=== PATIENT | male | born 1940 | race Caucasian/White ===

== ENCOUNTER 2022-03-14 12:13 | Emergency (ER) | payer MEDICARE, OTHER ==
[~2022-03-14] VITALS: Ht 175.2 cm; Wt 79.3 kg
--- NOTE | 2022-03-14 12:19 | ED Chest Pain ---
General Stated Complaint: CHEST PAIN History of Present Illness Date Seen by Provider: Mar 14, 2022 Time Seen by Provider: 12:19 Initial Comments 81-year-old male presents with epigastric and mid chest pain. Reports pain started 4 nights ago. That is comes and goes. That it has woke him up from sleep a couple times. He has not had any pain since yesterday evening patient reports he got better with some ibuprofen. Patient has no new cough, shortness of breath, fever, chills, radiation of the pain, nausea, vomiting or hamilton phoresis. Patient went to urgent care who sent him to the ER for further work- up.. Allergies and Home Medications Allergies Coded Allergies: No Known Drug Allergies (Unverified , 03/14/22) Patient Home Medication List Home Medication List Reviewed: Yes Metoprolol Succinate (Metoprolol Succinate) 50 Mg Tab.er.24h, 50 MG PO DAILY Prescribed by: CECI MAYO on 03/14/22 1332 Review of Systems Review of Systems Constitutional: see HPI EENTM: No Symptoms Reported Respiratory: No Symptoms Reported Cardiovascular: See HPI Gastrointestinal: See HPI Genitourinary: No Symptoms Reported Musculoskeletal: no symptoms reported Skin: no symptoms reported Psychiatric/Neurological: No Symptoms Reported Endocrine: No Symptoms Reported Physical Exam Vital Signs Vital Signs - First Documented 03/14/22 12:25 Temp 36.5 Pulse 97 Resp 16 B/P (MAP) 143/98 (113) Pulse Ox 98 O2 Delivery Room Air Capillary Refill : Height, Weight, BMI Height: '" Weight: lbs. oz. kg; BMI Method: General Appearance: No Apparent Distress, WD/WN Respiratory: Lungs Clear, Normal Breath Sounds Cardiovascular: No Edema, Irregularly Irregular Extremity: Normal Capillary Refill, Normal Inspection Neurologic/Psychiatric: Alert, Oriented x3, No Motor/Sensory Deficits, Normal Mood/Affect, lpn rn hospice II-XII Norm as Tested Skin: Normal Color, Warm/Dry Progress/Results/Core Measures Results/Orders Lab Results Laboratory Tests Test 03/14/22 12:25 Range/Units White Blood Count 7.4 4.3-11.0 10^3/uL Red Blood Count 4.39 4.30-5.52 10^6/uL Hemoglobin 14.8 13.3-17.7 g/dL Hematocrit 44 40-54 % Mean Corpuscular Volume 99 80-99 fL Mean Corpuscular Hemoglobin 34 25-34 pg Mean Corpuscular Hemoglobin Concent 34 32-36 g/dL Red Cell Distribution Width 12.4 10.0-14.5 % Platelet Count 179 130-400 10^3/uL Mean Platelet Volume 9.4 9.0-12.2 fL Immature Granulocyte % (Auto) 0 % Neutrophils (%) (Auto) 66 42-75 % Lymphocytes (%) (Auto) 20 12-44 % Monocytes (%) (Auto) 11 0-12 % Eosinophils (%) (Auto) 2 0-10 % Basophils (%) (Auto) 0 0-10 % Neutrophils # (Auto) 4.9 1.8-7.8 10^3/uL Lymphocytes # (Auto) 1.5 1.0-4.0 10^3/uL Monocytes # (Auto) 0.8 0.0-1.0 10^3/uL Eosinophils # (Auto) 0.2 0.0-0.3 10^3/uL Basophils # (Auto) 0.0 0.0-0.1 10^3/uL Immature Granulocyte # (Auto) 0.0 0.0-0.1 10^3/uL Sodium Level 139 135-145 MMOL/L Potassium Level 4.4 3.6-5.0 MMOL/L Chloride Level 102 98-107 MMOL/L Carbon Dioxide Level 25 21-32 MMOL/L Anion Gap 12 5-14 MMOL/L Blood Urea Nitrogen 23 H 7-18 MG/DL Creatinine 1.29 0.60-1.30 MG/DL Estimat Glomerular Filtration Rate 56 BUN/Creatinine Ratio 18 Glucose Level 131 H 70-105 MG/DL Calcium Level 9.2 8.5-10.1 MG/DL Corrected Calcium 9.1 8.5-10.1 MG/DL Magnesium Level 2.2 1.6-2.4 MG/DL Total Bilirubin 0.6 0.1-1.0 MG/DL Aspartate Amino Transf (AST/SGOT) 17 5-34 U/L Alanine Aminotransferase (ALT/SGPT) 12 0-55 U/L Alkaline Phosphatase 71 40-136 U/L Troponin I < 0.30 <0.30 NG/ML C-Reactive Protein 3.18 H <0.50 MG/DL Pro-B-Type Natriuretic Peptide 1142.0 H <450.0 PG/ML Total Protein 7.4 6.4-8.2 GM/DL Albumin 4.1 3.2-4.5 GM/DL Lipase 32 8-78 U/L My Orders Orders - CECI MAYO DO Cbc With Automated Diff (03/14/22 12:19) Comprehensive Metabolic Panel (03/14/22 12:19) Lipase (03/14/22 12:19) Magnesium (03/14/22 12:19) Probnp Fs (03/14/22 12:19) Crp Fs (03/14/22 12:19) Troponin I Fs (03/14/22 12:19) Ekg Tracing (03/14/22 12:19) Monitor-Rhythm Ecg Trace Only (03/14/22 12:19) Chest 1 View Ap/Pa Only (03/14/22 12:19) Vital Signs/I&O 03/14/22 03/14/22 12:25 13:59 Temp 36.5 36.5 Pulse 97 93 Resp 16 16 B/P (MAP) 143/98 (113) 144/93 Pulse Ox 98 98 O2 Delivery Room Air Room Air Progress Progress Note : Progress Note Patient's EKG shows atrial fib. Patient with no known history of atrial fib. Patient with negative troponin. Patient's chest pain has been sporadic on and off for about 4 days and seems more epigastric. We will start him on metoprolol succinate 50 mg once daily, aspirin daily and have him follow-up with Dr. Garcia office on March 21 at 10 AM. Also recommended he start Pepcid twice daily. Patient stable and discharged home Initial ECG Impression Date: Mar 14, 2022 Initial ECG Impression Time: 12:23 Initial ECG Rate: 97 Initial ECG Rhythm: A Fib/Flutter Initial ECG Impression: Atrial Fibrillation Comment nonspecific t wave changes Diagnostic Imaging Diagonstic Imaging: Xray Plain Films/CT/US/NM/MRI: chest Comments Date of Exam:03/14/22 CHEST 1 VIEW AP/PA ONLY EXAMINATION: Chest, one view. HISTORY: Chest pain. COMPARISON: None available. FINDINGS: The lung volumes are low. No focal consolidation is seen. No large pleural effusion or pneumothorax is seen. The cardiomediastinal silhouette is prominent. There is calcified aortic atherosclerotic plaque. No acute osseous abnormality is seen. IMPRESSION: 1. Cardiomegaly. No overt pulmonary edema. 2. Low lung volumes. Departure Impression Primary Impression: Atrial fibrillation Qualified Codes: I48.91 - Unspecified atrial fibrillation Disposition: HOME, SELF-CARE Condition: Stable Departure-Patient Inst. Referrals: ANIKET MARQUEZ APRN (PCP) Primary Care Physician [facility] (Family) Primary Care Physician Patient Instructions: Atrial Fibrillation (DC) Add. Discharge Instructions: 81 mg aspirin daily, Pepcid twice daily You have a appointment with Dr. Garcia, mental health advanced practice nurse and [facility] on March 21 at 10 AM. Please arrive approximately 30 minutes early to fill out paperwork Scripts Metoprolol Succinate (Metoprolol Succinate) 50 Mg Tab.er.24h 50 MG PO DAILY, #20 TAB Prov: CECI MAYO DO 03/14/22 CECI MAYO DO Mar 14, 2022 12:19
[2022-03-14 12:35] LABS: BASOPHILS % (AUTO) 0 % (0-10); EOSINOPHILS # (AUTO) 0.2 10^3/uL (0.0-0.3); EOSINOPHILS % (AUTO) 2 % (0-10); HEMATOCRIT 44 % (40-54); HEMOGLOBIN 14.8 g/dL (13.3-17.7); LYMPHOCYTES # (AUTO) 1.5 10^3/uL (1.0-4.0); LYMPHOCYTES % (AUTO) 20 % (12-44); MEAN CORPUSCULAR HEMOGLOBIN 34 pg (25-34); MEAN CORPUSCULAR HGB CONC 34 g/dL (32-36); MEAN CORPUSCULAR VOLUME 99 fL (80-99); MEAN PLATELET VOLUME 9.4 fL (9.0-12.2); MONOCYTES # (AUTO) 0.8 10^3/uL (0.0-1.0); MONOCYTES % (AUTO) 11 % (0-12); NEUTROPHILS # (AUTO) 4.9 10^3/uL (1.8-7.8); NEUTROPHILS % (AUTO) 66 % (42-75); PLATELET COUNT 179 10^3/uL (130-400); WHITE BLOOD COUNT 7.4 10^3/uL (4.3-11.0)
--- NOTE | 2022-03-14 12:47 | Diagnostic Imaging Report ---
EXAMINATION: Chest, one view. HISTORY: Chest pain. COMPARISON: None available. FINDINGS: The lung volumes are low. No focal consolidation is seen. No large pleural effusion or pneumothorax is seen. The cardiomediastinal silhouette is prominent. There is calcified aortic atherosclerotic plaque. No acute osseous abnormality is seen. IMPRESSION: 1. Cardiomegaly. No overt pulmonary edema. 2. Low lung volumes. Dictated by: Dictated on workstation # [id number]
[2022-03-14 13:11] LABS: ALANINE AMINOTRANSFERASE 12 U/L (0-55); ALKALINE PHOSPHATASE 71 U/L (40-136); BILIRUBIN,TOTAL 0.6 MG/DL (0.1-1.0); BUN/CREATININE RATIO 18; CALCIUM 9.2 MG/DL (8.5-10.1); CARBON DIOXIDE 25 MMOL/L (21-32); CHLORIDE 102 MMOL/L (98-107); CREATININE SERUM 1.29 MG/DL (0.60-1.30); GFR ESTIMATED 56; GLUCOSE 131 MG/DL (70-105); MAGNESIUM 2.2 MG/DL (1.6-2.4); POTASSIUM 4.4 MMOL/L (3.6-5.0); SODIUM 139 MMOL/L (135-145); TOTAL PROTEIN 7.4 GM/DL (6.4-8.2)
[2022-03-14 13:12] LABS: ALBUMIN 4.1 GM/DL (3.2-4.5); LIPASE 32 U/L (8-78)
[2022-03-14] MEDS ORDERED: METO50TA7 PO (13:32)
[2022-03-14 13:59] VITALS: BP 144/93
== END 2022-03-14 13:59 | disposition home or self-care (01) ==
LOC: ER FS 12:17
DX: I48.91 Unspecified atrial fibrillation (principal)
CPT/HCPCS: 36415; 71045; 80053; 83690; 83735; 83880; 84484; 85025; 86141; 93005; 93041

== ENCOUNTER → 2022-04-19 | Outpatient (CLI) | payer MEDICARE, OTHER ==
[~2022-04-19] MED LIST: CATHETER FLUSH 10 ML SYR IVP PRN; METO50TA7 PO; REGADENOSON 0.4 MG/5 ML SYR (LEXISCAN) IV ONE
[2022-04-19 12:59] VITALS: BP 181/110
--- NOTE | 2022-04-19 15:19 | NUCLEAR STRESS TEST ---
REGADENOSON NUCLEAR STRESS Date of procedure: 04/19/2022. Primary care provider: Belkis Arceo APRN Admitting physician: Olu Garcia Jr., MD. INDICATION: Paroxysmal atrial fibrillation. BASELINE ELECTROCARDIOGRAM: Atrial fibrillation with poor R wave progression and nonspecific ST changes. STRESS TEST PROCEDURE: The patient was administered 0.4 mg of intravenous Regadenoson. The resting heart rate was 96 bpm and the peak heart rate was 120 bpm. The resting blood pressure was 181/110 mmHg and the minimum blood pressure was 155/100 mmHg. This represents a normal heart rate and a normal blood pressure response to Regadenoson with resting hypertension. The test was stopped due to the protocol. There was no chest discomfort during the test. The patient was in atrial fibrillation for the duration of the test. There were no significant stress induced electrocardiogram changes. NUCLEAR PROCEDURE: The patient was administered 7.7 mCi of intravenous technetium 99m Tetrofosmin at rest for the rest images. The patient was subsequently administered 22.6 mCi of intravenous technetium 99m Tetrofosmin at peak stress for the stress images. Following an appropriate wait after each injection, imaging was obtained. The images were subsequently processed and reformatted in the usual views. Gated imaging was obtained. The image quality was adequate with a mild degree of gastrointestinal attenuation artifact. CT attenuation correction was used as a adjunct to standard imaging. Both the co rrected and uncorrected images were reviewed for interpretation. NUCLEAR RESULTS: There was a small, mild intensity, reversible apical defect with a small amount of inducible ischemia. There was normal left ventricular chamber size with an end-diastolic volume of 39 mL and an end-systolic volume of 13 mL. There was no evidence of transient ischemic dilatation. The TID ratio was 1.07. There was normal wall motion in all segments with a calculated ejection fraction of 65%. IMPRESSION: 1. Normal heart rate and blood pressure response to regadenoson with resting hypertension. 2. There was no chest discomfort or electrocardiogram changes during the test. 3. The patient was in atrial fibrillation for the duration of the test. 4. There was a small, mild intensity, reversible apical defect with a small amount of inducible ischemia. 5. There was normal wall motion in all segments with a calculated ejection fraction of 65%. 6. This is an abnormal result although represents a low risk for possible future coronary ischemic events. Certain portions of this document may have been dictated utilizing voice recognition technology. Inherent to this technology, typographical and grammatical errors may exist. As much as I am diligent to identify and correct these mistakes, some errors may remain in the document. OLU GARCIA JR, MD Apr 19, 2022 15:19
== END ==
LOC: CARD 10:30
PROVIDERS: ATTEND Internal Medicine Cardiovascular Disease
DX: I48.0 Paroxysmal atrial fibrillation (principal); I25.9 Chronic ischemic heart disease, unspecified
CPT/HCPCS: 78452; 93017; A9502; C8929; 93306